=== PATIENT | female | born 1950 | race Caucasian/White ===

== ENCOUNTER 2022-09-08 07:51 | Day surgery (SDC) | payer BC ==
[2022-09-03 11:29] LABS: EOSINOPHILS # (AUTO) 0.2 X10'3 (0-0.9); MEAN CORPUSCULAR HEMOGLOBIN 30.6 PG (27.0-31.0); RED BLOOD COUNT 4.85 X10'6 (4.20-5.60)
[2022-09-03 11:31] LABS: BASOPHILS % (AUTO) 0.6 % (0-1); EOSINOPHILS % (AUTO) 2.3 % (0-6); LYMPHOCYTES # (AUTO) 1.5 X10'3 (1.1-4.8); LYMPHOCYTES % (AUTO) 19.7 % (21-51); MEAN CORPUSCULAR VOLUME 89.8 FL (78-98); MEAN PLATELET VOLUME 7.9 FL (7.4-10.4); MONOCYTES # (AUTO) 0.5 X10'3 (0-0.9); MONOCYTES % (AUTO) 6.2 % (2-12); NEUTROPHILS # (AUTO) 5.4 X10'3 (1.8-7.7); NEUTROPHILS % (AUTO) 71.2 % (42-75); PRE OP HEMATOCRIT 43.6 % (35.0-45.0); PRE OP HEMOGLOBIN 14.8 g/dL (12.0-16.0); PRE OP PLATELET COUNT 207 X10'3 (140-440); RED CELL DISTRIBUTION WIDTH 13.1 % (11.5-14.5)
[2022-09-03 11:44] LABS: ALBUMIN 3.5 G/DL (3.4-5.0); ALBUMIN/GLOBULIN RATIO 0.9 (1.1-1.5); ALKALINE PHOSPHATASE 74 IU/L (46-116); BLOOD UREA NITROGEN 18 MG/DL (7-18); BUN/CREATININE RATIO 18.9 (6.6-38.0); CALCIUM 9.2 MG/DL (8.5-10.1); CHLORIDE 103 MMOL/L (99-107); CREATININE 0.95 MG/DL (0.40-0.90); PRE OP ALT 31 U/L (30-65); PRE OP ANION GAP 7 (8-16); PRE OP AST 22 U/L (10-37); PRE OP BILIRUB, TOTAL 0.5 MG/DL (0.0-1.0); PRE OP GLUCOSE 119 MG/DL (70-104); PRE OP POTASSIUM 3.9 MMOL/L (3.4-5.1); PRE OP SODIUM 138 MMOL/L (135-145); TOTAL CARBON DIOXIDE 27.6 MMOL/L (24-32); TOTAL PROTEIN 7.2 G/DL (6.4-8.2); eGFR 58 ML/MIN
[2022-09-08] VITALS (11 sets, daily range): BP systolic 132–170; BP diastolic 57–78
[~2022-09-08] VITALS: Ht 165.1 cm; Wt 103.0 kg
[~2022-09-08 07:51] MED LIST: INDOCYANINE GREEN 25 MG/10 ML VIAL IV ONE; LOSA50TA64 PO; famotidine 20mg tablet PO ONE; ringers solution, lacted 1,000 ML IV SCH
[2022-09-08] MEDS ORDERED: cefazolin/dext.iso 2gm/100ml 100 ML IV ONE (08:30)
[2022-09-08] MEDS ORDERED: BUPIVAcaine 0.5% inj/PF 30 ML ONE (10:02)
[2022-09-08] MEDS ORDERED: LIDOcaine 1% 30ml preserv. free vial ONE (10:02)
[2022-09-08] MEDS ORDERED: labetalol 20mg/4ml (5mg/ml) syringe IV PRN (10:05)
[2022-09-08] MEDS ORDERED: morphine 2 MG/ML inj. syringe IV PRN (10:05)
[2022-09-08] MEDS ORDERED: meperidine/PF 25mg/ml syringe IV PRN ×3 (10:05)
[2022-09-08] MEDS ORDERED: acetaminophen 1,000mg/100ml IV 100 ML IV PRN (10:05)
[2022-09-08] MEDS ORDERED: morphine 4 MG/ML inj SYRINge IV PRN (10:05)
[2022-09-08] MEDS ORDERED: ondansetron/PF 4mg/2ml inj IV PRN (10:05)
[2022-09-08] MEDS ORDERED: ringers solution, lacted 1,000 ML IV SCH (10:05)
[2022-09-08] MEDS ORDERED: proCHLORperazine 10 MG/2 ml inj IV PRN (10:05)
[2022-09-08] MEDS ORDERED: hydrALAZINE 20mg/ml inj. IV PRN (10:05)
[2022-09-08] MEDS ORDERED: sevoflurane 250ml liquid IH ONE (10:08)
[2022-09-08] MEDS ORDERED: midazolam 1 mg/ML 2ml injection ONE (10:17)
[2022-09-08] MEDS ORDERED: fentaNYL /PF 50mcg/ml 5ml ampule ONE (10:17)
[2022-09-08] MEDS ORDERED: rocuronium 10mg/ml inj IV ONE (10:26)
[2022-09-08] MEDS ORDERED: propofol inj 20 ML IV ONE (10:26)
[2022-09-08] MEDS ORDERED: LIDOcaine 2% (20mg/ml) 5ml vial ONE (10:26)
[2022-09-08] MEDS ORDERED: BUPIVAcaine 0.5% inj/PF 30 ml vial IJ ONE (10:43)
[2022-09-08] MEDS ORDERED: glycopyrrolate 0.2mg/ml inj ONE ×2 (11:13→11:31)
[2022-09-08] MEDS ORDERED: neostigmine methylsulfate 1 MG/ML 10ml vial ONE ×2 (11:13→11:31)
[2022-09-08] MEDS ORDERED: ondansetron/PF 4mg/2ml inj ONE (11:13)
[2022-09-08] MEDS ORDERED: dexamethasone sod phosphate 4mg/ml inj. ONE (11:14)
--- NOTE | 2022-09-08 11:40 | NUR ---
Received from OR via [facility], accompanied by Anesthesiologist DR SANDOVAL and report given by Anesthesiologist AND PONY ROUGHER. PT DROWSY, DENIES PAIN. ABDOMEN W/3 LAP SITES W/BAND AIDS CDI. Addendum: 09/08/22 at 1255 by Justine Carreon RN Amended: Links added.
[2022-09-08] MEDS ORDERED: oxyCODONE/APAP 5-325mg tablet PO PRN (11:55)
--- NOTE | 2022-09-08 13:30 | NUR ---
PT UP AND ABLE TO AMBULATE SAFELY, PT STATES SHE IS COMFORTABLE, D/C INSTRUCTIONS GIVEN AND GONE OVER W/PT WHO VERBALIZED UNDERSTANDING. PT D/CD TO HOME VIA W/C TO PRIVATE VEHICLE W/O INCIDENT. Addendum: 09/08/22 at 1353 by Justine Carreon RN Amended: Links added.
== END 2022-09-08 13:30 | disposition home or self-care (01) ==
LOC: PAS 07:51
PROVIDERS: ATTEND Surgery
DX: K80.10 Calculus of gallbladder with chronic cholecystitis without obstruction (principal); K43.0 Incisional hernia with obstruction, without gangrene; I10 Essential (primary) hypertension; Z79.899 Other long term (current) drug therapy; Z90.710 Acquired absence of both cervix and uterus; Z98.890 Other specified postprocedural states; Z88.1 Allergy status to other antibiotic agents; Z87.891 Personal history of nicotine dependence; Z85.59 Personal history of malignant neoplasm of other urinary tract organ; Z85.828 Personal history of other malignant neoplasm of skin; Z82.49 Family history of ischemic heart disease and other diseases of the circulatory system; Z80.49 Family history of malignant neoplasm of other genital organs
CPT/HCPCS: 36415; 47563; 49592; 80053; 82948; 85025; 93005; J0131; J0690; J1100; J2175; J2250; J2405; J2704; J2710; J3010; J3490; J7030; J7120; S0020; S2900; Z7506; Z7508; Z7512; A4215; A4618; A7000

== ENCOUNTER 2023-02-26 09:42 | Emergency (ER) | payer BC ==
[~2023-02-26] VITALS: Ht 165.1 cm; Wt 90.0 kg
[~2023-02-26 09:42] MED LIST changes: -INDOCYANINE GREEN 25 MG/10 ML VIAL IV ONE; -famotidine 20mg tablet PO ONE; -ringers solution, lacted 1,000 ML IV SCH
[2023-02-26 10:00] LABS: BASOPHILS % (AUTO) 0.6 % (0-1); EOSINOPHILS # (AUTO) 0.2 X10'3 (0-0.9); EOSINOPHILS % (AUTO) 2.1 % (0-6); HEMATOCRIT 42.5 % (35.0-45.0); HEMOGLOBIN 14.5 g/dl (12.0-16.0); LYMPHOCYTES # (AUTO) 1.7 X10'3 (1.1-4.8); LYMPHOCYTES % (AUTO) 21.9 % (21-51); MEAN CORPUSCULAR HGB CONC 34.1 g/dL (33.0-36.5); MEAN PLATELET VOLUME 7.8 FL (7.4-10.4); MONOCYTES # (AUTO) 0.5 X10'3 (0-0.9); NEUTROPHILS # (AUTO) 5.5 X10'3 (1.8-7.7); NEUTROPHILS % (AUTO) 69.4 % (42-75); PLATELET COUNT 207 X10'3 (140-440); RED BLOOD COUNT 4.67 X10'6 (4.20-5.60); RED CELL DISTRIBUTION WIDTH 13.1 % (11.5-14.5); WHITE BLOOD COUNT 7.9 X10'3 (4.5-11.0)
[2023-02-26 10:11] LABS: ALANINE AMINOTRANSFERASE 29 U/L (12-78); ALBUMIN 3.6 G/DL (3.4-5.0); ALKALINE PHOSPHATASE 86 IU/L (46-116); ANION GAP 9 (8-16); ASPARTATE AMINO TRANSFERASE 19 U/L (10-37); BILIRUBIN,TOTAL 0.5 MG/DL (0.1-1.0); BLOOD UREA NITROGEN 20 MG/DL (7-18); BUN/CREATININE RATIO 18.3 (10.0-20.0); CALCIUM 8.8 MG/DL (8.5-10.1); CHLORIDE 105 MMOL/L (99-107); CREATININE 1.09 MG/DL (0.40-0.90); GLUCOSE 111 MG/DL (70-104); POTASSIUM 3.9 MMOL/L (3.5-5.1); SODIUM 142 MMOL/L (135-145); TOTAL CARBON DIOXIDE 28.2 MMOL/L (24-32); TOTAL PROTEIN 7.1 G/DL (6.4-8.2); eGFR 49 ML/MIN
[2023-02-26 10:16] VITALS: BP 176/85
== END 2023-02-26 10:41 | disposition home or self-care (01) ==
LOC: ER 09:43
DX: R07.89 Other chest pain (principal); I10 Essential (primary) hypertension; Z88.8 Allergy status to other drugs, medicaments and biological substances
CPT/HCPCS: 36415; 71045; 80053; 83880; 84484; 85025; 93005; 99285